=== PATIENT | male | born 1985 | race Caucasian/White ===

== ENCOUNTER 2017-02-16 18:10 | Emergency (ER) | payer BC, OTHER ==
[2017-02-16 18:32] VITALS: BP 124/91
--- NOTE | 2017-02-16 18:51 | UC ---
Back Pain HPI - HPI Summary HPI Summary: 5 DAYS OF DIFFUSE LOW BACK PAIN. NO CLEAR INJURY. NO HEAVY LIFTING. THINKS HE MAY HAVE TWEAKED IT GETTING OUT OF THE CAR. PAIN RADIATES DOWN BACK OF LEGS. NO NUMBNESS, TINGLING OR SADDLE ANESTHESIA. HAD SOME NAUSEA THAT HAS NOW RESOLVED. NO URINARY SX. PT IS A HEROIN USER - SNORTS AND INJECTS. HAS BEEN USING MORE FREQUENTLY RECENTLY. 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 Onset/Duration: Sudden Onset, Lasting Days, Still Present Timing: Constant Severity Initially: Moderate Severity Currently: Moderate Pain Intensity: 6 Pain Scale Used: 0-10 Numeric Back Pain: Is Discrete @ - LOW BACK Character: Aching, Spasmodic Aggravating: Movement Alleviating: Rest, Position Associated Signs And Symptoms: Positive: Negative - Allergies/Home Medications Allergies/Adverse Reactions: Allergies Allergy/AdvReac Type Severity Reaction Status Date / Time Cefaclor [From [facility]] Allergy Mild Rash Verified 02/16/17 18:32 Home Medications: Home Medications Amphetamine-Dextroamphetamine [Adderall XR 30 mg-] 90 mg PO DAILY 02/16/17 [ History Confirmed 02/16/17] Buprenorphine HCl-Naloxone HCl [Zubsolv 8.6-2.1 mg] 1 cap PO DAILY 02/16/17 [ History Confirmed 02/16/17] PMH/Surg Hx/FS Hx/Imm Hx Previously Healthy: Yes - Surgical History Surgical History: None - Family History Known Family History: Positive: Hypertension - Social History Alcohol Use: None Substance Use Type: Heroin, Marijuana Smoking Status (MU): Current Every Day Smoker Review of Systems Constitutional: Negative Skin: Negative Respiratory: Negative Cardiovascular: Negative Gastrointestinal: Nausea Genitourinary: Negative Musculoskeletal: Decreased ROM, Myalgia All Other Systems Reviewed And Are Negative: Yes Physical Exam Triage Information Reviewed: Yes Appearance: Well-Appearing, No Pain Distress, Well-Nourished Vital Signs: Initial Vital Signs Temp 97.6 F 02/16/17 18:26 Pulse 101 02/16/17 18:26 Resp 18 02/16/17 18:26 BP 124/91 02/16/17 18:26 Pulse Ox 97 02/16/17 18:26 Vital Signs Reviewed: Yes Eyes: Positive: Conjunctiva Clear ENT: Positive: Hearing grossly normal Neck: Positive: Supple Respiratory: Positive: No respiratory distress, No accessory muscle use Cardiovascular: Positive: Pulses Normal Abdomen Description: Positive: Soft. Negative: CVA Tenderness (R), CVA Tenderness (L), Distended, Guarding Musculoskeletal: Positive: No Edema, ROM Limited @ - BACK, Other: - NO TENDERNESS OVER PARASPINOUS MUSCLES. NO BRUISING OR SWELLING OVER BACK Psychological: Positive: Normal Response To Family, Age Appropriate Behavior Skin: Negative: rashes Back Pain Course/Dx - Differential Dx/Diagnosis Provider Diagnoses: ACUTE LOW BACK STRAIN Discharge - Discharge Plan Condition: Stable Disposition: HOME Prescriptions: Naproxen [Naproxen EC] 500 mg PO BID PRN #30 tab PRN Reason: Pain predniSONE TAB* [Deltasone TAB*] 50 mg PO DAILY #5 tab Patient Education Materials: Low Back Strain (ED), Lower Back Exercises (ED) Referrals: Edith Florez MD [Medical Doctor] - 1 Week
== END 2017-02-16 19:15 | disposition home or self-care (01) ==
LOC: UCEAST 18:10
DX: S39.012A Strain of muscle, fascia and tendon of lower back, initial encounter (principal); X58.XXXA Exposure to other specified factors, initial encounter; Y93.9 Activity, unspecified; Y92.9 Unspecified place or not applicable; Z88.1 Allergy status to other antibiotic agents; F11.90 Opioid use, unspecified, uncomplicated; F12.90 Cannabis use, unspecified, uncomplicated; F17.210 Nicotine dependence, cigarettes, uncomplicated
CPT/HCPCS: 99212; G0463

== ENCOUNTER 2017-04-04 18:43 | Emergency (ER) | payer OTHER ==
[2017-04-04 20:21] VITALS: BP 128/94
--- NOTE | 2017-04-04 20:50 | UC ---
Skin Complaint HPI - HPI Summary HPI Summary: Last injected 5 days ago-in right ac. has had a worsening abscess---no fevers - History of Current Complaint Hx Obtained From: Patient Onset/Duration: Gradual Onset, Lasting Days - 5, Still Present Skin Exposure Onset/Duration: Days Ago - 5 Timing: Constant Onset Severity: Mild Current Severity: Moderate Pain Intensity: 9 Pain Scale Used: 0-10 Numeric Location: Discrete - right AC Character: Swelling, Pain, Redness Aggravating: Touch Alleviating: Nothing, Heat <Monique Partida - Last Filed: 04/04/17 21:33> <Corrie Ma - Last Filed: 04/05/17 07:12> - History of Current Complaint Chief Complaint: UCSkin Time Seen by Provider: 04/04/17 20:38 Stated Complaint: SKIN COMPLAINT ON ARM - Allergy/Home Medications Allergies/Adverse Reactions: Allergies Allergy/AdvReac Type Severity Reaction Status Date / Time Cefaclor [From [facility]] Allergy Mild Rash Verified 02/16/17 18:32 Review of Systems Constitutional: Negative Skin: Rash - 5x6 cm firm red raised non fluctulant abscess right medial ac with 8x14 cm extending erythema---no streaking Eyes: Negative ENT: Negative Respiratory: Negative Cardiovascular: Negative Gastrointestinal: Negative Genitourinary: Negative Motor: Negative Neurovascular: Negative Musculoskeletal: Negative Neurological: Negative Psychological: Negative All Other Systems Reviewed And Are Negative: Yes <Monique Partida - Last Filed: 04/04/17 21:33> PMH/Surg Hx/FS Hx/Imm Hx Previously Healthy: No - opiate abuse disorder - Surgical History Surgical History: None - Family History Known Family History: Positive: Hypertension - Social History Occupation: Unemployed Lives: With Family Alcohol Use: None Substance Use Type: Heroin, Marijuana Smoking Status (MU): Current Every Day Smoker Have You Smoked in the Last Year: Yes Household Exposure Type: Cigarettes Cessation Counseling: Patient Advised to Stop <Monique Partida - Last Filed: 04/04/17 21:33> Physical Exam Triage Information Reviewed: Yes Appearance: Ill-Appearing - pale, Pain Distress - mild, Thin Vital Signs: Initial Vital Signs Temp 98 F 04/04/17 20:18 Pulse 113 04/04/17 20:18 Resp 20 04/04/17 20:18 BP 128/94 04/04/17 20:18 Pulse Ox 100 04/04/17 20:18 Vital Signs Reviewed: Yes Eye Exam: Normal Eyes: Positive: Conjunctiva Clear ENT Exam: Normal ENT: Positive: Normal ENT inspection, Hearing grossly normal. Negative: Nasal congestion, Nasal drainage, Trismus, Muffled/hoarse voice Dental Exam: Normal Neck exam: Normal Neck: Positive: Supple, Nontender, No Lymphadenopathy Respiratory Exam: Normal Respiratory: Positive: Chest non-tender, Lungs clear, Normal breath sounds, No respiratory distress, No accessory muscle use Cardiovascular Exam: Normal Cardiovascular: Positive: No Murmur, Pulses Normal, Brisk Capillary Refill, Tachycardia Musculoskeletal Exam: Normal Musculoskeletal: Positive: Strength Intact, ROM Intact, No Edema Neurological Exam: Normal Neurological: Positive: Alert, Muscle Tone Normal Psychological Exam: Normal Skin Exam: Normal Skin: Positive: Other - 5x6 cm firm red raised non fluctulant abscess right medial ac with 8x14 cm extending erythema---no streaking <Monique Partida - Last Filed: 04/04/17 21:33> Vital Signs: Initial Vital Signs Temp 98 F 04/04/17 20:18 Pulse 113 04/04/17 20:18 Resp 20 04/04/17 20:18 BP 128/94 04/04/17 20:18 Pulse Ox 100 04/04/17 20:18 <Corrie Ma - Last Filed: 04/05/17 07:12> Course/Dx - Course Course Of Treatment: pt refuses transfer to the hospital, pt is agreeable to going in a few hours when he feels more settled, pain med and antibiodics given suggested warm compresses and follow up at hospital tonight or with pcp KYLIE - Differential Diagnoses - Skin Complaint Differential Diagnoses: Abscess, Cellulitis - Diagnoses Provider Diagnoses: Abscess right AC, Opiate addiction, nicotine addiction <Monique Partida - Last Filed: 04/04/17 21:33> Discharge <Monique Partida - Last Filed: 04/04/17 21:33> <Corrie Ma - Last Filed: 04/05/17 07:12> - Discharge Plan Condition: Stable Disposition: HOME Prescriptions: Clindamycin Cap(NF) [Clindamycin Cap 300 mg Cap(NF)] 300 mg PO Q6H #40 cap Patient Education Materials: Abscess (ED), Warm Compress or Soak (ED) Referrals: Edith Florez MD [Primary Care Provider] - 1 Day Additional Instructions: Titus, It is vital that you go to the emergency department tonight for further evaluation and care. I am very worried about sepsis and infection of the valves in your heart. These are fatal illness. Take care of your self Let Go and Let God........ Shonda FICTION WRITER-C Attestation Statement User Type: Provider - I was available for consult. This patient was seen by the RONI. The patient was not presented to, seen by, or examined by me. -Virginie <Corrie Ma - Last Filed: 04/05/17 07:12>
[2017-04-04] MEDS ORDERED: cefTRIAXone VIAL(*) 1,000 MG VIAL IM ONE (20:57)
[2017-04-04] MEDS ORDERED: HYDROcodone/ACETAMIN 5-325 MG* 1 TAB PO ONE (21:00)
[2017-04-04] MEDS ORDERED: Clindamycin CAP* 150 MG PO ONE (21:04)
== END 2017-04-04 21:30 | disposition home or self-care (01) ==
LOC: UCEAST 18:43
DX: L02.413 Cutaneous abscess of right upper limb (principal); F11.90 Opioid use, unspecified, uncomplicated; F12.90 Cannabis use, unspecified, uncomplicated; F17.210 Nicotine dependence, cigarettes, uncomplicated
CPT/HCPCS: 99212; A9270-GY; G0463

== ENCOUNTER 2017-04-05 15:25 | Emergency (ER) | payer OTHER ==
--- NOTE | 2017-04-05 17:25 | RAD ---
INDICATION: Pain and swelling at the right antecubital fossa COMPARISON: None TECHNIQUE: Real time ultrasound images of the right antecubital fossa were acquired with vicente scale and Doppler color flow imaging. FINDINGS: Underlying the site of maximal tenderness there is a heterogeneously mildly vascular collection in the subcutaneous tissue measuring up to 1.8 cm and thickness. There is a small anechoic and avascular fluid collection measuring 8 x 8 x 4 mm. Underlying vessels including the brachial, radial and ulnar arteries are adequately patent. The basilic vein is patent. IMPRESSION: Sonographic findings are most consistent with subcutaneous phlegmon at the antecubital fossa with a small focus of fluid measuring 8 mm in greatest dimension.
[2017-04-05] MEDS ORDERED: Ketorolac INJ* 60 MG/2 ML VIAL IM ONE (17:45)
[2017-04-05] MEDS ORDERED: Ketorolac INJ* 60 MG/2 ML VIAL ONE (17:50)
[2017-04-05 18:54] VITALS: BP 121/83
--- NOTE | 2017-04-05 19:06 | ED ---
Skin Complaint - HPI Summary HPI Summary: Pt here w/ Rt AC fossa infection x 5 days. H/o heroine injection here. Pt reports he uses clean needles and is aware of the clean needle program in town - does not want testing for infection today including HIV, Hepatitis as well as sepsis. He was seen at last night - reports he was given some antibiotics and advised to come here which he did not do. He is here today only to get more antibiotics - does not want testing or IV antibiotics. Denies fever, chills, nausea, vomiting, chest pain, shortness of breath. Has pain and has been using heat compresses which help a little. Wondering if area may be drained as arm is painful to move. Denies h/o MRSA, staph infection as well as sepsis, etc. Explained his heart rate is elevated today but he admits to daily amphetamine use. He also denies taking acetaminophen or ibuprofen prior to arrival for fever /pain control. - History of Current Complaint Chief Complaint: EDRashSkinAbscess Time Seen by Provider: 04/05/17 17:40 Stated Complaint: ABSCESS ON ARM-SENT FROM 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 - female support person Pain Intensity: 7 - Allergy/Home Medications Allergies/Adverse Reactions: Allergies Allergy/AdvReac Type Severity Reaction Status Date / Time Cefaclor [From [facility]] Allergy Mild Rash Verified 04/05/17 15:35 PMH/Surg Hx/FS Hx/Imm Hx Previously Healthy: Yes Endocrine/Hematology History: Denies: Hx Anticoagulant Therapy, Hx Blood Disorders, Hx Diabetes, Hx Thyroid Disease, Autoimmune Disease - no h/o immunosuppressant medications Cardiovascular History: Denies: Hx Hypertension, Hx Rheumatic Fever, Hx Valvular Heart Disease Respiratory History: Denies: Hx Asthma, Hx Chronic Obstructive Pulmonary Disease (COPD) GI History: Denies: Hx Ulcer - Immunization History Immunizations Up to Date: Yes Infectious Disease History: No Infectious Disease History: Denies: Hx Clostridium Difficile, Hx Hepatitis, Hx Human Immunodeficiency Virus (HIV), Hx of Known/Suspected MRSA, Hx Shingles, Hx Tuberculosis, Hx Known/ Suspected VRE, Hx Known/Suspected VRSA, History Other Infectious Disease, Traveled Outside the [place] in Last 30 Days - Family History Known Family History: Positive: Hypertension - Social History Occupation: Unemployed Lives: Alone Alcohol Use: None Hx Substance Use: Yes Substance Use Type: Reports: Heroin, Marijuana Substance Use Comment - Amount & Last Used: heroin "occasionally" Hx Tobacco Use: Yes Smoking Status (MU): Current Every Day Smoker Amount Used/How Often: 1/2PPD Have You Smoked in the Last Year: Yes Review of Systems Constitutional: Negative Negative: Fever, Chills, Fatigue Cardiovascular: Negative Negative: Palpitations, Chest Pain Respiratory: Negative Negative: Shortness Of Breath Gastrointestinal: Negative Negative: Abdominal Pain, Vomiting, Diarrhea, Nausea Positive: no symptoms reported Musculoskeletal: Other - see HPI Skin: Other - see HPI Neurological: Negative Negative: Headache, Weakness, Paresthesia, Numbness, Syncope, Slurred Speech Psychological: Other - admits he agitated today from hunger, pain and wants to go home - no SI/HI All Other Systems Reviewed And Are Negative: Yes Physical Exam Triage Information Reviewed: Yes Vital Signs On Initial Exam: Initial Vitals Temp Pulse Resp BP Pulse Ox 97.8 F 110 16 144/104 100 04/05/17 15:35 04/05/17 15:35 04/05/17 15:35 04/05/17 15:35 04/05/17 15:35 Vital Signs Reviewed: Yes Appearance: Positive: Well-Appearing, Pain Distress - mild at rest, Thin Skin: Positive: Warm, Dry - area of indurated, tender erythema that is feverish adn TTP over RT A/C fossa - 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 Negative: Murmur, Rub Abdomen Description: Positive: Nontender, Soft Bowel Sounds: Positive: Present Musculoskeletal: Positive: Limited @ - Rt elbow ROM limited d/t pain and swelling Neurological: Positive: Normal, Sensory/Motor Intact, Alert, Oriented to Person Place, Time, CN Intact II-III Psychiatric: Positive: Other - calm but agitated - wants to leave - voices understanding concern for more aggressive w/u and tx (ie. IV anbx today) but he declines and voices understanding risks of lesser intervention at this time - admits he will return to ED if anything gets worse (ie. pain, swelling, develops fever, nausea, chest pain, etc) - female support person present and witnesses interactions Diagnostics - Vital Signs Vital Signs Temp Pulse Resp BP Pulse Ox 04/05/17 18:53 98.3 F 100 16 121/83 04/05/17 16:40 107 98 04/05/17 16:02 109 99 04/05/17 16:00 132/91 04/05/17 15:54 97.8 F 110 16 144/104 100 04/05/17 15:35 97.8 F 110 16 144/104 100 - Laboratory Lab Statement: Any lab studies that have been ordered have been reviewed, and results considered in the medical decision making process. Re-Evaluation - Re-Evaluation First Eval Change: Unchanged - no pain improvement with toradol Course/Dx - Course Course Of Treatment: Pt here w/ abscess to Rt AC fossa x 5 days. He went to last night and received some oral anbx along w/ advice to come here. He did not and went home. Returned today to see if his wound could be drained and requesting more oral anbx - declines w/u w/ labs and IV anbx. U/S fluid collection is small to drain at this time. He denies fever and has not taken anything to reduce fever prior to arrival. He admits to amphetamine use which is most likely why he has an elevated heart rate. Denies systemic sx of infection and requests PO anbx along w/ d/c. Tells me he plans to f/u w/ PCP and if worse, will return to ED. He is aware this is not the best course of treatment but is willing to engage a secondary plan of PO anbx w/ close f/u. Female partner observed conversation and offers no comments but appears to be concerned/supportive of pt. - Diagnoses Provider Diagnoses: Abscess of right arm Discharge - Discharge Plan Condition: Stable Disposition: HOME Patient Education Materials: Cellulitis (ED), Abscess (ED) Referrals: Edith Florez MD [Primary Care Provider] - Additional Instructions: You appear to have a small abscess with cellulitis. This is not ready for drainage today however antibiotics are recommended. You have declined lab work and IV antibiotics however would like to try outpatient oral antibiotics unless infection worsens in which case you will return to ED. This may be apparent by signs or symptoms of fever, chills, nausea, vomiting, fatigue, chest pain, shortness of breath. Complete antibiotics which were sent to your pharmacy until completed. You may also take ibuprofen along with acetaminophen for pain/ swelling. Heat alternating with ice for comfort. Elevate. Follow-up with PCP in 1-2 days for recheck or return to ED as recommended.
== END 2017-04-05 18:54 | disposition home or self-care (01) ==
LOC: ED 15:25
DX: L02.413 Cutaneous abscess of right upper limb (principal)
CPT/HCPCS: 96372; 99281; J1885

== ENCOUNTER 2019-05-23 13:36 | Emergency (ER) | payer OTHER ==
[2019-05-23] MEDS ORDERED: Ketorolac INJ* 30 MG/ML 1 ML VIAL IV ONE (14:09)
[2019-05-23] MEDS ORDERED: NS 0.9% 1000 ML** 2,000 ML IV SCH (14:15)
[2019-05-23 14:55] LABS: ABS Eosinophils 0.1 10^3/ul (0-0.6); ABS Lymphocytes 1.4 10^3/ul (1.0-4.8); ABS Monocytes 0.6 10^3/ul (0-0.8); ABS Neutrophils 8.3 10^3/ul (1.5-7.7); Eosinophil % 0.5 %; Hematocrit 40 % (42-52); Hemoglobin 13.9 g/dL (14.0-18.0); Lymphocyte % 13.3 %; Mean Corpuscular HGB Conc 34 g/dL (31-36); Mean Corpuscular Hemoglobin 29 pg (27-31); Mean Corpuscular Volume 84 fL (80-94); Mean Platelet Volume 7.4 fL (7.4-10.4); Platelet Count 333 10^3/uL (150-450); Red Blood Count 4.79 10^6 /uL (4.18-5.48); Red Cell Distribution Width 14 % (10-15); White Blood Count 10.4 10^3/uL (3.5-10.8)
[2019-05-23 15:18] LABS: ALT 11 U/L (7-52); AST 15 U/L (13-39); Albumin 4.5 g/dL (3.2-5.2); Albumin/Globulin Ratio 1.7 (1-3); Alkaline Phosphatase 79 U/L (34-104); Amylase 27 U/L (29-103); Anion Gap 5 mmol/L (2-11); BUN/Creatinine Ratio 19.7 (8-20); Blood Urea Nitrogen 15 mg/dL (6-24); C Reactive Protein 1.47 mg/L (<8.01); CO2 Carbon Dioxide 30 mmol/L (22-32); Calcium 9.4 mg/dL (8.6-10.3); Chloride 104 mmol/L (101-111); Creatine Kinase 109 U/L (10-223); EGFR African American 142.1 (>60); EGFR Non-African American 117.4 (>60); Globulin 2.6 g/dL (2-4); Glucose 104 mg/dL (70-100); Sodium 139 mmol/L (135-145); Total Protein 7.1 g/dL (6.4-8.9)
[2019-05-23] MEDS ORDERED: Iohexol 300* (CONTRAST) 10 ML SDV IV ONE (15:26)
[2019-05-23 15:34] LABS: Alcohol < 10 mg/dL (<10)
[2019-05-23 16:34] LABS: Urine Appearance Clear; Urine Bilirubin Negative (Negative); Urine Blood Negative (Negative); Urine Color Yellow; Urine Glucose Negative (Negative); Urine Ketones Trace (Negative); Urine Nitrite Negative (Negative); Urine Protein Negative (Negative); Urine Specific Gravity 1.012 (1.010-1.030); Urine Urobilinogen Negative (Negative)
[2019-05-23 16:51] LABS: Urine Benzodiazepine Screen None Detected (None Detect); Urine Opiates Screen None Detected (None Detect)
[2019-05-23 17:11] VITALS: BP 154/118
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
== END 2019-05-23 17:10 | disposition home or self-care (01) ==
LOC: ED 13:36
DX: S01.111A Laceration without foreign body of right eyelid and periocular area, initial encounter (principal); S61.512A Laceration without foreign body of left wrist, initial encounter; S61.219A Laceration without foreign body of unspecified finger without damage to nail, initial encounter; S06.9X9A Unspecified intracranial injury with loss of consciousness of unspecified duration, initial encounter; V49.9XXA Car occupant (driver) (passenger) injured in unspecified traffic accident, initial encounter; Y93.89 Activity, other specified; Y92.410 Unspecified street and highway as the place of occurrence of the external cause; M50.321 Other cervical disc degeneration at C4-C5 level; Z88.1 Allergy status to other antibiotic agents; F17.200 Nicotine dependence, unspecified, uncomplicated
CPT/HCPCS: 12011; 36415; 70450; 71260; 72125; 74177; 80053; 80307; 80320; 81003; 82150; 82550; 83605; 83690; 85025; 85610; 86140; 93005; 96374; 99283; G0480; J1885; Q9967